=== PATIENT | female | born 1980 | race Caucasian/White ===

== ENCOUNTER 2022-06-16 06:59 | Day surgery (SDC) | payer OTHER, SELFPAY ==
[2022-06-06 10:48] VITALS: BMI 32.8
--- NOTE | 2022-06-15 15:40 | WPDANESEPPF ---
Anes - Initial Pre Proc Eval Procedure: Operation Date: 06/16/22 09:15 Proposed Procedures p Bilateral Breast Implant Removal with Caspulectomy - Medardo Cardoza MD s Bilateral Breast Mastopexy - Medardo Cardoza MD Date/Time: 06/15/22 15:40 Surgeon: Medardo Cardoza MD Pre Op Diagnosis: History of Breast Augmentation Patient Data Age: 41 Gender: F Height: 1.6 m Weight: 84 kg Allergies Allergy/AdvReac Type Severity Reaction Status Date / Time No Known Allergies Allergy Verified 06/06/22 10:42 Home Medications Medication Instructions Recorded Confirmed Type No Home Medications 06/06/22 06/06/22 History Patient hx anesthesia problems: none Family hx anesthesia problems: none Results Review: All pre-operative results and documents have been reviewed as part of the pre-operative evaluation. [facility] Social History Social History Smoking status: Never smoker Second hand tobacco smoke exposure: No Alcohol intake: never Substance use: never Substance use type: does not use Living arrangements: with family Spiritual care concerns: No Anes - Eval Final PreProcedure Day of Procedure 06/15/22 15:40 Patient weight: obese Heart: regular rate and rhythm Lungs: clear to auscultation and normal air movement Airway: Mallampati scale class II Neurological: alert and oriented Last oral intake: >/= 8 hours ASA classification: II Emergent: no Anesthetic plan: proceed Anesthesia type and monitoring: general LMA Results Review: All pre-operative results and documents have been reviewed as part of the pre-operative evaluation. Informed Consent: The patient's anesthetic plan and its attendant risks and benefits were discussed with the patient/family/POA. Questions were solicited and answers provided to the satisfaction of the patient/family/POA.
[2022-06-16] VITALS (8 sets, daily range): BP systolic 108–138; BP diastolic 58–86; PULSE 75–96; RESP 12–20; TEMP 36.5–36.7; O2SAT 93–99
[2022-06-16] MEDS: LACTATED RINGERS 1,000 ML 30 ML IV CONT (07:59)
[2022-06-16] MEDS: SCOPOLAMINE 1.5 MG PATCH TRANSDERM (07:59)
--- NOTE | 2022-06-16 09:03 | WPDHPUPDATE1 ---
History and Physical Update Update Date/Time: 06/16/22 09:03 History and Physical has been reviewed, including an updated exam of the patient. There are NO changes in the patient's condition. Risks, benefits, and alternatives have been discussed and questions answered. Patient agrees to proceed with procedure.
--- NOTE | 2022-06-16 09:19 | P.OP_ITS ---
Procedure Note - Detailed Date of Procedure 06/16/22 Pre-op Diagnosis History of Breast Augmentation Post-op Diagnosis Same Procedure Performed 1. Bilateral implant removal with capsulectomy 2. Bilateral mastopexy Surgeon Medardo Cardoza MD Anesthesia General Findings Inverted T Superior Pedicle Description of Procedure She is here today for bilateral breast implant removal with mastopexy. Previously and again today the risks, benefits, alternatives were discussed in extensive detail. I wanted her to be very realistic about the risks involved as well as expectations. We discussed aftercare and what to monitor for. Made sure answered all of her questions to her satisfaction today and consent was obtained. Marked in the preoperative holding area with their verification. The patient was taken to the operating room placed supine on the operating table. Anesthesia was provided by anesthesiology. A surgical time-out was taken. She was prepped and draped in a standard sterile fashion. 1% lidocaine and 0.25% Marcaine with epi was used to anesthetize locally. I incised vertically below the areola and capsule identfied. Implants were identified and intact. They were removed. Bilateral capsules were densly adherent to the pectoralis muscle / chest wall.. I copiously irrigated with saline solution on TUR tubing and verified a strict hemostasis. I tailor tacked the breast into position. Placed her in a sitting position. Verified the nipple-areolar location based on preoperative planning as well as intraoperative observations and measurements in full agreement. She was placed supine. I de-epithelialized the pedicle. I then de-epithelialized the inferior breast tissue to create an autoaugmentation flap based on intercostal medical collections specialist. I elevated medial and lateral tissue flaps as well for planned closure. The autoaugmentation flap was sutured to the chest wall with 2-0 PDS. I closed along the IMF with 2-0 Stratafix. Along the vertical with 2-0 PDS. I closed around the Sravan with 3-0 strata fix. 3-0 Monocryl along the vertical. 3-0 Stratafix along the IMF. I finally closed everything with running subcuticular 4-0 Monocryl and tissue glue. Fluffs and surgical bra were placed. Estimated Blood Loss 125 Drains No Packing No Pathology None sent Complications No immediate complications Condition Stable Disposition PACU
[2022-06-16] MEDS: TRANEXAMIC ACID 1,000 MG/10 ML AMPUL 1000 MG IV PUSH (09:23)
[2022-06-16] MEDS: ceFAZolin SODIUM 2 GM/20 ML SW SYRINGE IV PUSH (09:23)
[2022-06-16] MEDS: LACTATED RINGERS 1,000 ML 150 ML IV CONT (12:01)
[2022-06-16] MEDS: fentaNYL CITRATE INJ (*CRX) 100 MCG/2 ML VIAL 25 MCG IV PUSH ×2 (12:29→12:36)
[2022-06-16] MEDS: oxyCODONE HCL (*CRX) 5 MG TAB IR PO (13:13)
--- NOTE | 2022-06-16 14:47 | WPDANESPN ---
Anes - Prog Note Post-Op Date/Time: 06/16/22 14:47 Cardiovascular status: normal Respiratory status: normal Airway patency: baseline Mental status: baseline Post-Op hydration status: normal Vital Signs: Last Vital Signs Temp 36.5 C 06/16/22 12:45 Pulse 78 06/16/22 13:35 Resp 18 06/16/22 13:35 BP 128/84 06/16/22 13:35 Pulse Ox 99 06/16/22 13:35 O2 Del Method Room Air 06/16/22 13:35 O2 Flow Rate 2 06/16/22 12:30 Pain Score (VAS): 0 I/O: Intake & Output 06/15/22 06/16/22 06/16/22 23:59 07:59 15:59 Intake Total 200 Balance 200 Post-procedural complaints: none Patient Feedback: Patient satisfied with anesthetic care.
== END 2022-06-16 14:05 | disposition home or self-care (01) ==
PROVIDERS: PCP Nurse Practitioner; Visit Provider Surgery Plastic and Reconstructive Surgery
PROC: 0HPT0JZ Removal of Synthetic Substitute from Right Breast, Open Approach (ICD-10-PCS; CPT 19316; principal; 2022-06-16 09:15)
PROC: (CPT 19316; 2022-06-16 09:15)
DX: Z41.1 Encounter for cosmetic surgery (principal)
CPT/HCPCS: 19316